=== PATIENT | female | born 2000 ===

== ENCOUNTER 2022-09-04 14:56 | Outpatient (CLI) | payer OTHER | END 2022-09-04 17:42 | disposition home or self-care (01) | LOC: PRENATAL 14:56 | PROVIDERS: ATTEND Obstetrics & Gynecology Maternal & Fetal Medicine | DX: O35.9XX0 Maternal care for (suspected) fetal abnormality and damage, unspecified, not applicable or unspecified (principal); O35.3XX0 Maternal care for (suspected) damage to fetus from viral disease in mother, not applicable or unspecified; Z3A.21 21 weeks gestation of pregnancy ==

== ENCOUNTER 2022-10-22 19:00 | Outpatient (CLI) | payer OTHER ==
[2022-10-22] MEDS ORDERED: PRENATAL TABLE1 EAC3 PO (22:18)
[2022-10-22] MEDS ORDERED: A/F PAIN RELIE500 MG PO (22:18)
== END 2022-10-23 17:06 | disposition home or self-care (01) ==
LOC: OBS/DEL 19:00
PROVIDERS: ATTEND Obstetrics & Gynecology
DX: O99.513 Diseases of the respiratory system complicating pregnancy, third trimester (principal); Z3A.28 28 weeks gestation of pregnancy; Z20.822 Contact with and (suspected) exposure to COVID-19

== ENCOUNTER 2023-01-06 09:22 | Inpatient (IN) | payer OTHER ==
[~2023-01-06] VITALS: Ht 160 cm; Wt 64.4 kg
[~2023-01-06 09:22] MED LIST: A/F PAIN RELIE500 MG PO; PRENATAL TABLE1 EAC3 PO
== END 2023-01-09 13:21 | disposition home or self-care (01) | DRG 807 ==
LOC: OBS/DEL 09:22 → LDR 01-07 08:29 → OB/GYN 01-07 13:46
PROVIDERS: ADMIT Obstetrics & Gynecology; ATTEND Obstetrics & Gynecology
PROC: BY4FZZZ Ultrasonography of Third Trimester, Single Fetus (ICD-10-PCS; 2023-01-06)
PROC: 10E0XZZ Delivery of Products of Conception, External Approach (ICD-10-PCS; principal; 2023-01-07)
PROC: 0HQ9XZZ Repair Perineum Skin, External Approach (ICD-10-PCS; 2023-01-07)
PROC: 4A1HXCZ Monitoring of Products of Conception, Cardiac Rate, External Approach (ICD-10-PCS; 2023-01-07)
DX: O70.0 First degree perineal laceration during delivery (principal); Z37.0 Single live birth; Z3A.39 39 weeks gestation of pregnancy; Z20.822 Contact with and (suspected) exposure to COVID-19